=== PATIENT | male | born 2000 | race Caucasian/White ===

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

== ENCOUNTER 2023-06-07 20:26 | Emergency (ER) | payer BC, MEDICAID ==
[2023-06-07] MEDS ORDERED: cefTRIAXone 1 GM Vial IM ONE (21:16)
[2023-06-07] MEDS ORDERED: cefTRIAXone 1 GM Vial ONE (21:25)
[2023-06-07] MEDS ORDERED: Cephalexin 500 MG Cap ONE (21:30)
[2023-06-07] MEDS ORDERED: Lidocaine 1% 5 ML VIAL INJECT ONE (21:38)
== END 2023-06-07 21:45 | disposition home or self-care (01) ==
LOC: LB.ED 20:26
DX: H92.01 Otalgia, right ear (principal)
CPT/HCPCS: 10060; 87070; 99282; 99283; A9270; J0696